=== PATIENT | female | born 1940 | race Caucasian/White ===

== ENCOUNTER 2018-01-17 12:00 | Day surgery (SDC) | payer OTHER ==
[~2018-01-17 12:00] MED LIST: CRESTOR20 MG PO; SYNTHROID112 MCG PO; TOPROL XL100 M1 PO; VALSARTAN-HCTZ1 EAC3 PO
[2018-01-17] MEDS ORDERED: KETO10TA2 PO (14:48)
== END 2018-01-17 20:00 | disposition home or self-care (01) ==
LOC: CIR.AMB 12:00 → AMB-ENDOS 15:15 → CIR.AMB 20:00
DX: N95.0 Postmenopausal bleeding (principal); N84.0 Polyp of corpus uteri